=== PATIENT | male | born 1975 | race Caucasian/White ===

== ENCOUNTER 2024-08-13 15:23 | Emergency (ER) | payer OTHER, SELFPAY ==
[2024-08-13 15:28] VITALS: BP 137/92
[2024-08-13 16:06] LABS: % Basophils 0.3 % (0-2); % Eosinophils 0.1 % (0-6); % Immature Granulocytes 0.3 % (0-0.5); % Lymphocytes 17.5 % (20.5-51.1); % Monocytes 6.5 % (1.7-9.3); % Neutrophils 75.3 % (42.2-75.2); Absolute Lymphocytes 1.2 10^3/uL (1.2-3.4); Absolute Monocytes 0.4 10^3/uL (0.1-0.6); Absolute Neutrophils 5.1 10^3/uL (1.4-6.5); Hematocrit 44.1 % (39.0-52.0); Hemoglobin 15.6 g/dL (13.0-18.0); Mean Corp Hgb Conc. 35.4 g/dL (33.0-37.0); Mean Corpuscular Hgb 31.1 pg (27.0-31.0); Nucleated Red Blood Cells % 0 % (-); Platelet Count 199 10^3/uL (130-400); Red Blood Cell Count 5.01 10^6/uL (4.70-6.10); White Blood Cell Count 6.8 10^3/uL (4.8-10.8)
[2024-08-13 16:18] LABS: ALT (SGPT) 20 U/L (0-50); AST (SGOT) 29 U/L (17-59); Albumin 4.9 g/dl (3.5-5.0); Alkaline Phosphatase 44 U/L (38-126); Blood Urea Nitrogen 10 mg/dl (9-20); Calcium 9.5 mg/dl (8.4-10.2); Carbon Dioxide 30 mmol/L (22-30); Chloride 99 mmol/L (98-107); Glucose 155 mg/dl (70-99); Sodium 138 mmol/L (135-145); Total Bilirubin 0.7 mg/dl (0.2-1.3); Total Protein 7.6 g/dl (6.3-8.2); eGFR > 60.00
[2024-08-13 16:20] LABS: Troponin I < 0.012 ng/ml
[2024-08-13 20:06] VITALS: BP 119/82
[2024-08-13 20:24] LABS: Troponin I < 0.012 ng/ml
--- NOTE | 2024-08-13 20:51 | ED.GENMED ---
History of Present Illness
General
Chief Complaint: Chest Pain
Source: patient
Exam Limitations: none
Time Seen by Provider: 08/13/24 20:32
History of Present Illness
History of Present Illness:
49-year-old male presents with onset of chest discomfort that radiated to his arm. This started earlier this morning. He was up early for a [employer] tournament symptoms persist throughout the day and happen again at 3:00 this afternoon. Since
waiting in the waiting room he states all of his symptoms have now resolved. He denies any current chest discomfort arm discomfort. There is never any nausea or diaphoresis. No recent travel or surgery. No leg swelling or calf pain. He is
healthy. No family history of cardiac disease. No other complaints at this time
Past History
Past History
ED Past Medical History: None
ED Past Surgical History: None
Social History
Tobacco: Non-smoker
Alcohol: Occasional
Personal:
Living: with family
Employment: Employed
Family History
Family History: Other (Noncontributory); Negative Early CAD or Sudden
Phy Exam
Physical Exam
Physical Exam:
General: Well appearing male NAD
HEENT: NC/AT
Heart: RRR, no murmurs
Lungs: Clear throughout, breath sounds heard bilaterally
Abd: soft, nontender. Non distened
Ext: no cyanosis or edema
Skin: Warm no rash
Scores
Heart Score for Chest Pain Patients
STEMI patient?: No
History: Slightly or Non-Suspicious
ECG: Normal
Age: >45 - <65 years
Risk Factors: No Risk Factors
Troponin: </= Normal Limit
Heart Score for Chest Pain Patients: 1
Heart Score Risk: 2.5% MACE over next 6 weeks
Course
Orders/Labs/Results
Orders:
Orders
08/13/24 15:31
Electrocardiogram (*1) Urgent
Reason for Study: Chest Pain
EKG- Treatment ONCE
08/13/24 15:47
Complete Blood Count/With Diff Urgent
Comprehensive Metabolic Panel Urgent
Troponin I Urgent
08/13/24 19:25
Electrocardiogram (*1) Urgent
Reason for Study: Chest Pain
EKG- Treatment ONCE
08/13/24 19:53
Troponin I Urgent
Abnormal Lab Results
08/13/24
15:47
MCH 31.1 H pg
(27.0-31.0)
Neutrophils % 75.3 H %
(42.2-75.2)
Lymphocytes % 17.5 L %
(20.5-51.1)
Glucose 155 H mg/dl
(70-99)
08/13/24 15:47
08/13/24 15:47
Vital Signs
Initial and Last Documented VS:
Initial Vital Signs
Temp Pulse Resp BP Pulse Ox
98.6 F 96 16 137/92 100
08/13/24 15:28 08/13/24 15:28 08/13/24 15:28 08/13/24 15:28 08/13/24 15:28
Last Documented Vital Signs
Temp Pulse Resp BP Pulse Ox
98.6 F 63 16 119/82 98
08/13/24 15:28 08/13/24 20:06 08/13/24 20:06 08/13/24 20:06 08/13/24 20:06
MDM/Problems Addressed
Differential Diagnosis Includes:
Chest pain. Consider ACS versus PE versus dissection versus musculoskeletal chest pain
Symptoms now resolved. Troponin x 2 undetectable. EKG shows sinus rhythm without ischemic changes. Labs reviewed without significant finding otherwise. Considered imaging however not indicated at this time given resolution of symptoms.
Patient is expressing his desire to go home he has been waiting quite some time. A workup is reassuring. Recommend he follow-up with family doctor as he is low risk otherwise
*Critical Care Note
Total Time (30-74mins, 75-104mins- exclusive of procedures): Not Applicable
ED Attending Note
-
Portions of this chart may have been created with voice recognition software.� Occasional wrong word or��sound alike� substitutions may have occurred due to the inherent limitations of voice recognition software.
Discharge Plan
Departure
Patient Disposition: Home (Routine Discharge)
Date of Disposition: 08/13/24
Time of Disposition: 20:58
Patient with high blood pressure during this ER visit?: No
Discharge Problem:
Chest pain
Instructions: Chest Pain PCP Follow Up
Prescriptions:
No Action
No Current Medications
0
Referrals:
Manuel Delaney MD [Family Provider] -
Activity Restrictions/Additional Instructions:
Please return here for any worsening symptoms. Follow-up with your family doctor otherwise
Interventions
Interventions:
*Risk Screen - Suicide Last Done: 08/13/24 15:28
*General Assessment Last Done: 08/13/24 15:28
*Neglect/Abuse Screening Last Done: 08/13/24 15:28
ED- Cardiac Assessment Last Done: 08/13/24 20:36
Discharge Date and Time
Print Language: PARAGUAYAN
[2024-08-13 21:08] VITALS: BP 129/86
== END 2024-08-13 21:10 | disposition home or self-care (01) ==
LOC: EMR 15:23
PROVIDERS: EMERGENCY PHYSICIAN Emergency Medicine; FAMILY PHYSICIAN Family Medicine
DX: R07.89 Other chest pain (principal)
CPT/HCPCS: 99284; 80053; 84484; 85025; 93005